=== PATIENT | male | born 1955 | race Caucasian/White ===

== ENCOUNTER 2016-03-15 13:05 | Emergency (ER) | payer MEDICAID ==
[2016-03-15 14:36] VITALS: BP 147/104; PULSE 91; RESP 18; TEMP 97.5; O2SAT 97
--- NOTE | 2016-03-15 14:53 | UCPHY ---
H & P Time Seen by Provider: 03/15/16 14:44 Patient Type: New HPI/ROS: This patient developed right flank rash described as blisters painful and burning in nature over the last couple days. The pain is mild to moderate. He also complains of severe rheumatoid arthritic pain and requests prednisone for his arthritis. A he complains of this pain in the hands more than the wrists and ankles and knees. He has longstanding history of rheumatoid arthritis and has been on prednisone frequently in the past. No fevers or chills. No confusion. No neck stiffness. No coughing. 7 point ROS is otherwise negative. Past Medical/Surgical History: Rheumatoid arthritis Previous zoster Smoking Status: Current every day smoker Physical Exam: Physical Exam Vital signs are normal. General: No acute distress HEENT: Atraumatic. Nose clear oropharynx clear Eyes: Pupils equal and react to light. Extraocular motions are intact. Lungs: No respiratory distress. Cardiac: Brisk capillary refill is intact throughout. Skin: The patient has a right lateral flank fascicular rash with mild erythema in a dermatomal distribution consistent with zoster. No petechia or purpura. Musculoskeletal: Patient has findings characteristic rheumatoid arthritis in his hands. Neuro: Alert and oriented x3 with no sensorimotor deficits. ROS: Zoster, contact dermatitis, rheumatoid arthritis flare Constitutional: Initial Vital Signs Temperature (C) 36.4 C 03/15/16 14:32 Heart Rate 91 03/15/16 14:32 Respiratory Rate 18 03/15/16 14:32 Blood Pressure 147/104 H 03/15/16 14:32 O2 Sat (%) 97 03/15/16 14:32 O2 Delivery Mode Room Air Allergies/Adverse Reactions: No Known Allergies Allergy (Unverified 03/15/16 14:31) Home Medications: Medication Instructions Recorded Ibuprofen 04/09/15 Naprosyn 04/09/15 predniSONE 10 mg PO DAILY #30 tab 04/09/15 Hydrocodone/APAP 5/325 [Hornbeak 1 - 2 tab PO Q4PRN PRN #20 tab 03/15/16 5/325 (*)] Valacyclovir HCl [Valtrex] 1,000 mg PO TID #21 tab 03/15/16 predniSONE 3 each PO DAILY PRN #30 tab 03/15/16 MDM/Departure - MDM ED Course/Re-evaluation: Discussion: Findings consistent with zoster. Patient has rheumatoid arthritis with significant deformity as well. He appears nontoxic and otherwise well. - Depart Disposition: Home, Routine, Self-Care Clinical Impression: Zoster Qualifiers: Herpes zoster complications: without complications Qualifier Code: (B02.9) Zoster without complications Rheumatoid arthritis Qualifiers: Rheumatoid arthritis location: multiple sites Rheumatoid factor presence: with rheumatoid factor Qualifier Code: (M05.79) Rheumatoid arthritis with rheumatoid factor of multiple sites without organ or systems involvement Instructions: Shingles (ED) Additional Instructions: Diagnosis: 1. Shingles 2. Rheumatoid arthritis flare Plan: Prednisone as prescribed Valtrex antiviral Tylenol or Vicodin as needed for pain control. No driving, alcohol or come Vicodin. Prescriptions: Hydrocodone/APAP 5/325 [Hornbeak 5/325 (*)] 1 - 2 tab PO Q4PRN PRN #20 tab PRN Reason: Pain Valacyclovir HCl [Valtrex] 1,000 mg PO TID #21 tab predniSONE 3 each PO DAILY PRN #30 tab PRN Reason: arthritis Referrals: [place] STATE,. [Primary Care Provider] - As per Instructions - PQRS PQRS Measurement: NA
== END 2016-03-15 14:58 | disposition home or self-care (01) ==
LOC: CED 13:05
DX: B02.9 Zoster without complications (principal); M05.79 Rheumatoid arthritis with rheumatoid factor of multiple sites without organ or systems involvement; F17.210 Nicotine dependence, cigarettes, uncomplicated
CPT/HCPCS: 99203-PO; G0463-PO

== ENCOUNTER 2016-08-04 15:00 | Emergency (ER) | payer MEDICAID ==
--- NOTE | 2016-08-04 15:27 | EDPHY ---
H & P Time Seen by Provider: 08/04/16 15:10 HPI/ROS: CHIEF COMPLAINT: My arthritis is flaring up HISTORY OF PRESENT ILLNESS: Patient has a long history of rheumatoid arthritis. Symptoms have been worse for the past 3 weeks. Present in all joints especially today in his ankles. His identical to previous arthritis flares which typically only get better with oral prednisone. No fever or chills and no recent trauma. REVIEW OF SYSTEMS: As above PAST MEDICAL HISTORY: Rheumatoid arthritis, shingles Social history: Smoker General Appearance: Alert and conversant, cooperative. Patient has ulnar deviation both hands. Normal range of motion of wrist elbow shoulders and both ankles, and normal range of motion in both knees. No skin rashes. Afebrile. Emergency Department course/MDM: Patient requests prescription for prednisone which is what he says is the only thing that helps when he gets arthritis flare. Potential risks discussed including but not limited to avascular necrosis, diabetes, psychiatric, immunosuppression, electrolytes. Patient consented. Warned requires taper off prednisone. Patient has been on this medication multiple times, is aware. Smoking Status: Current every day smoker Constitutional: Initial Vital Signs Temperature (C) 36.4 C 08/04/16 15:10 Heart Rate 87 08/04/16 15:10 Respiratory Rate 16 08/04/16 15:10 Blood Pressure 128/84 H 08/04/16 15:10 O2 Sat (%) 94 08/04/16 15:10 O2 Delivery Mode Room Air Allergies/Adverse Reactions: No Known Allergies Allergy (Verified 08/04/16 15:18) Home Medications: Medication Instructions Recorded Ibuprofen 04/09/15 Tumeric 08/04/16 predniSONE 10 mg PO AD #30 tab 08/04/16 MDM/Departure - Depart Disposition: Home, Routine, Self-Care Clinical Impression: Rheumatoid arthritis flare Condition: Good Instructions: Rheumatoid Arthritis (ED) Prescriptions: predniSONE 10 mg PO AD #30 tab Referrals: MARQUIS GAFFNEY,. [Primary Care Provider] - As per Instructions
[2016-08-04 17:09] VITALS: BP 128/84; PULSE 87; RESP 16; TEMP 97.5; O2SAT 94
== END 2016-08-04 15:35 | disposition home or self-care (01) ==
LOC: CED 15:00
DX: M06.9 Rheumatoid arthritis, unspecified (principal); F17.200 Nicotine dependence, unspecified, uncomplicated

== ENCOUNTER 2018-04-18 10:58 | Emergency (ER) | payer MEDICAID ==
--- NOTE | 2018-04-18 12:04 | EDPHY ---
H & P Time Seen by Provider: 04/18/18 10:59 HPI/ROS: CHIEF COMPLAINT: Right wrist pain HISTORY OF PRESENT ILLNESS: Patient states that he has had right wrist pain, "pretty much constantly for some time but worse since yesterday."He states this wrist pain does feel different as it is more intense than prior problems with rheumatoid arthritis. He has had rheumatoid arthritis for about 10-12 years and is on Plaquenil over the last 8 months. 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 He denies fevers, chills, trauma, wound, nausea, vomiting. REVIEW OF SYSTEMS: Constitutional: No fever, no chills. Eyes: No discharge. ENT: No sore throat. Cardiovascular: No chest pain, no palpitations. Respiratory: No cough, no shortness of breath. Gastrointestinal: No abdominal pain, no vomiting. Genitourinary: No dysuria. Musculoskeletal: No back pain. Skin: No rashes. Neurological: No headache. General Appearance: Alert, no distress. Eyes: Pupils equal and round no pallor or injection. ENT, Mouth: Mucous membranes moist. Respiratory: There are no retractions, lungs are clear to auscultation. Cardiovascular: Regular rate and rhythm. Gastrointestinal: Abdomen is soft and nontender, no masses, bowel sounds normal. Neurological: Awake, alert, cranial nerves intact, no focal neurologic deficits. Skin: Warm and dry, no rashes. Musculoskeletal: Neck is supple nontender. Both wrists and hands with significant joint changes and digit deviation consistent with rheumatoid arthritis. The right wrist has some diffuse swelling, slight erythema and warmth. No tenderness to the right wrist with axial loading or gentle passive range of motion. Some tenderness to palpation diffusely. Extremities are symmetrical, full range of motion, no edema. Psychiatric: Patient is oriented X 3, there is no agitation. Medical/surgical history: Rheumatoid arthritis, shingles, surgeries include right elbow repair. 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 Treated with Xarelto for about 3 weeks. Social history: Use tobacco, occasional alcohol, denies drugs. Smoking Status: Heavy smoker Constitutional: Initial Vital Signs Temperature (C) 37 C 04/18/18 11:08 Heart Rate 86 04/18/18 11:08 Respiratory Rate 16 04/18/18 11:08 Blood Pressure 154/106 H 04/18/18 11:08 O2 Sat (%) 98 04/18/18 11:08 O2 Delivery Mode Room Air Allergies/Adverse Reactions: No Known Allergies Allergy (Verified 04/18/18 11:12) Home Medications: Medication Instructions Recorded Hydroxychloroquine Sulfate 02/04/18 [Plaquenil 200 mg (*)] Hydrocodone/Acetaminophen [Allardt 2 each PO Q6-8PRN PRN 2 Days #12 04/18/18 5-325 Tablet] tablet Tumeric Spice 04/18/18 Medical Decision Making ED Course/Re-evaluation: Discussed in detail with patient the difficulty of differentiating rheumatoid arthritis flare versus septic joint. Patient declined joint tap despite being on Plaquenil, immunosuppression. Patient verbalizes acceptance of risk of infection, sepsis, joint damage in leaving the emergency department without definitive evaluation for painful joint. Differential Diagnosis: Differential diagnosis includes but is not limited to rheumatoid arthritis flare , septic joint, sprain or strain. After evaluation likely rheumatoid arthritis flare although septic joint cannot be ruled out. Had lengthy discussion with patient about the importance of definitive diagnosis with joint tap to evaluate for infection but he declined this procedure. He did verbalize understanding of what to look for and will return to the emergency department if any suspicion for infection remains after 24-48 hours. He does have a inspectors and regulatory officers in [place] at the [facility] and stated he will follow up this week without fail. Prescription written for small amount of Allardt for pain. Will also take prednisone at home as recommended. Splint placed for comfort. Stable for discharge. Departure - Departure Clinical Impression: Rheumatoid arthritis flare Condition: Fair Instructions: Rheumatoid Arthritis (ED) Additional Instructions: Your wrist pain is likely related to your rheumatoid arthritis however a septic joint cannot be ruled out without obtaining fluid from the joint as discussed in the emergency department. You have a prescription for pain medication, Allardt , which you can use for the next 2 days for pain. You can use the prednisone that you have at home as well for the arthritis flare. I would recommend 40-60 mg on day 1 then 40 mg for 3 days, then 20 mg for 1 day. Keep your wrist in a splint and consider a sling for comfort for the next few days. You should however look at the wrist daily and if you see signs of infection such as increased redness, more swelling, not responding to treatment or if you get systemic symptoms such as nausea, body aches, fever or chills you should return to the emergency department immediately. Follow up with your inspectors and regulatory officers at [facility] this week without fail. Referrals: GULSHAN CHO [Other] - As per Instructions Prescriptions: Hydrocodone/Acetaminophen [Allardt 5-325 Tablet] 2 each PO Q6-8PRN PRN 2 Days #12 tablet PRN Reason: wrist pain
[2018-04-18 12:32] VITALS: BP 141/88
== END 2018-04-18 12:25 | disposition home or self-care (01) ==
LOC: CED 10:58
DX: M06.9 Rheumatoid arthritis, unspecified (principal)
CPT/HCPCS: 99283-ER; L3807-ER